=== PATIENT | male | born 1965 | race Caucasian/White ===

== ENCOUNTER 2020-11-29 09:39 | Day surgery (SDC) | payer BC, SELFPAY ==
[2020-11-25 15:28] VITALS: BMI 28.4
[2020-11-26 09:07] VITALS: BMI 28.4
--- NOTE | 2020-11-27 14:08 | P.CONAN_ITS ---
Documented by User: Noemy Morgan 11/27/20 14:08 HPI - Anesthesia Eval Consult details Narrative: 55yo M for Upper Endoscopy [facility] Past Medical History Medical History (Updated 11/25/20 @ 15:27 by Melina Sena) Hiatal hernia Surgical History Surgical History (Updated 11/25/20 @ 15:27 by Melina Sena) History of back surgery Hx of left knee surgery Social History Social History (Updated 11/25/20 @ 15:28 by Melina Sena) Smoking Status: Never smoker Advance Directives Information Provided: No Meds Allergies Allergy/AdvReac Type Severity Reaction Status Date / Time No Known Allergies Allergy Verified 11/25/20 15:28 Exam Exam Date and Time: November 27, 2020 1408 Height,Weight and Vital Signs: Height 5 ft 10 in Weight 89.811 kg Assessment and Plan Assessment Anesthesia Assessment: Chart Reviewed Documented by User: Amy Odonnell 11/29/20 11:06 [facility] Past Medical History Medical History (Updated 11/25/20 @ 15:27 by Melina Sena) Hiatal hernia Surgical History Surgical History (Updated 11/25/20 @ 15:27 by Melina Sena) History of back surgery Hx of left knee surgery Social History Social History (Updated 11/25/20 @ 15:28 by Melina Sena) Smoking Status: Never smoker Advance Directives Information Provided: No Meds Allergies Allergy/AdvReac Type Severity Reaction Status Date / Time No Known Allergies Allergy Verified 11/25/20 15:28 Exam Airway Mallampati Class: II TM Dist: >3cm Neck ROM: Full Heart: RrR Lungs: CTA BL Assessment and Plan Assessment Anesthesia Assessment: Anesthesia Plan Discussed and Chart Reviewed Final Anesthetic Review NPO: Yes ASA Class: I Final Preanesthetic Review: No Changes in Pt Med Stat and Consent Obtained/Reviewed Patient Risk: Intermediate Procedure Risk: Intermediate Anesthetic Plan Anesthetic Plan: MAC: Disposition: Standard PACU
[2020-11-29] MEDS: Lactated Ringers 1,000 ML 100 ML IVCONT (11:10)
[2020-11-29 11:11] VITALS: BP 125/80; PULSE 69; RESP 18; TEMP 36.1; O2SAT 96
--- NOTE | 2020-11-29 11:15 | MHC.SHP ---
Pre-Procedural Eval Section A The patient is an INPATIENT: No Changes since office visit: No Cold of Flu in the past 2 weeks, No New Medical Problems, No Changes in Medication and No Patient answered all questions The History & Physical has been completed within 30 days and I have reviewed it.: Yes Section B Chief Complaint: reflux disease,dysphagia Allergies: Allergies Allergy/AdvReac Type Severity Reaction Status Date / Time No Known Allergies Allergy Verified 11/25/20 15:28 Plan I have reviewed the history and physical and performed a pertinent physical examination on my patient. No changes have occurred unless specified.
--- NOTE | 2020-11-29 11:40 | PM.OP ---
Brief Operative Note Date of Service: 11/29/20 Pre-op diagnosis: gerd, dysphagia Post-op diagnosis: same (distal esophageal ring) Procedure: egd Surgeon: Arden Whitlock Anesthesia: MAC Estimated blood loss (mL): 10 Pathology: other (bxs egj and 30 cm) Condition: stable Disposition: PACU
[2020-11-29 11:44] VITALS: BP 128/81; PULSE 107; RESP 20; TEMP 36.6; O2SAT 88
[2020-11-29 11:59] VITALS: BP 124/85; PULSE 81; RESP 20; O2SAT 94
[2020-11-29 12:12] VITALS: BP 115/83; PULSE 79; RESP 18; TEMP 36.2; O2SAT 96
--- NOTE | 2020-11-29 21:09 | OP_ITS ---
SURGEON: Arden Whitlock MD INDICATIONS: Dysphagia and gastroesophageal reflux disease. PREOPERATIVE DIAGNOSIS: POSTOPERATIVE DIAGNOSIS: PROCEDURE PERFORMED: ESTIMATED BLOOD LOSS: COMPLICATIONS: ANESTHESIA: ASSISTANTS: SPECIMENS: PROCEDURES PERFORMED: Upper endoscopy with balloon dilation and biopsy. MEDICATIONS: Monitored anesthesia care. DESCRIPTION OF PROCEDURE: History and physical performed. The risks and benefits of the procedure were explained to the patient. Informed consent was obtained. The patient was placed in the left lateral decubitus position. The Olympus video gastroscope was introduced into the esophagus, stomach, and duodenum. Examination was performed. The scope was removed. He tolerated the procedure well and was taken to recovery area in stable condition. FINDINGS: Esophagus: There was a ring-like appearance of distal esophagus with a possible Schatzki ring at the EG junction. The scope initially did not pass through this, but then popped through with gentle pressure causing a small dilation of the EG junction. There was a sliding hiatal hernia. Stomach: Stomach showed no evidence of masses, ulcers, or polyps. Duodenum: The bulb and second portion were normal. A balloon dilation at the EG junction was performed with a 15-mm balloon with superficial mucosal disruption and excellent results. No further dilation was performed. Biopsies were obtained from the EG junction and at 30 cm to rule out eosinophilic esophagitis. IMPRESSION: Distal esophageal ring, hiatal hernia. RECOMMENDATIONS: 1. Follow up the biopsy results. 2. Consider repeat dilation pending clinical course. MD GRACIE Huang/SHIRLEY / [id number]
== END 2020-11-29 13:57 | disposition home or self-care (01) ==
PROVIDERS: PCP Internal Medicine; Visit Provider Internal Medicine Gastroenterology
PROC: 0DJ08ZZ Inspection of Upper Intestinal Tract, Via Natural or Artificial Opening Endoscopic (ICD-10-PCS; CPT 43235; principal; 2020-11-29 11:30)
DX: K21.9 Gastro-esophageal reflux disease without esophagitis (principal); K22.2 Esophageal obstruction; K44.9 Diaphragmatic hernia without obstruction or gangrene
CPT/HCPCS: 43249; 43239; 88305; 88312; C1726

== ENCOUNTER 2022-08-21 09:12 | Day surgery (SDC) | payer BC, SELFPAY ==
--- NOTE | 2022-08-20 11:58 | P.CONAN_ITS ---
Documented by User: Noemy Morgan NP 08/20/22 11:58 HPI - Anesthesia Eval Consult details Narrative: 57yo M for Colonoscopy s/p EGD 11/2020 with MAC [facility] Past Medical History Medical History GERD (gastroesophageal reflux disease) Hiatal hernia Surgical History Surgical History History of back surgery Hx of left knee surgery Social History Social History Patient Tobacco Use Status: Never used Tobacco Use of substances other than those prescribed or required for medical reasons: No Are you DNR?: No Advance Directives: No Advance Directives Information Provided: Yes Meds Allergies Allergy/AdvReac Type Severity Reaction Status Date / Time No Known Allergies Allergy Verified 08/21/22 09:18 Home Medications Medication Instructions Recorded Confirmed Last Taken Type omeprazole 20 mg capsule,delayed 20 cap PO QAM 08/20/22 Unknown History release Exam Exam Date and Time: August 20, 2022 1158 Assessment and Plan Assessment Anesthesia Assessment: Chart Reviewed Documented by User: Brigida Delcid MD 08/21/22 10:16 [facility] Past Medical History Medical History GERD (gastroesophageal reflux disease) Hiatal hernia Family History Family history of problems with anesthesia: No Surgical History Surgical History History of back surgery Hx of left knee surgery History of Problems with Anesthesia: No Social History Social History Patient Tobacco Use Status: Never used Tobacco Use of substances other than those prescribed or required for medical reasons: No Are you DNR?: No Advance Directives: No Advance Directives Information Provided: Yes Meds Allergies Allergy/AdvReac Type Severity Reaction Status Date / Time No Known Allergies Allergy Verified 08/21/22 09:18 Home Medications Medication Instructions Recorded Confirmed Last Taken Type omeprazole 20 mg capsule,delayed 20 cap PO QAM 08/20/22 Unknown History release Exam Height,Weight and Vital Signs: Height 5 ft 10 in Weight 83.915 kg Vital Signs Temp Pulse Resp BP Pulse Ox O2 Del Method 08/21/22 09:24 97.8 F 72 15 131/87 96 Room Air Airway Mallampati Class: II TM Dist: >3cm Neck ROM: Full Loose/Missing/Broken Teeth: No Heart: RRR Lungs: CTAB Assessment and Plan Assessment Anesthesia Assessment: Anesthesia Plan Discussed Final Anesthetic Review Family History of Problems with Anesthesia: No History of Problems with Anesthesia: No NPO: Yes ASA Class: II Final Preanesthetic Review: No Changes in Pt Med Stat, Meds/Allgs Chart Reviewed, Consent Obtained/Reviewed and Anes Risks/Benef Reviewed Patient Risk: Low Procedure Risk: Low Assessment/Block/Sedation in SS: Assess/Block/Sedation-SS Anesthetic Plan Anesthetic Plan: MAC: Disposition: Standard PACU
[2022-08-21 09:19] VITALS: BMI 26.5
[2022-08-21 09:24] VITALS: BP 131/87; PULSE 72; RESP 15; TEMP 36.6; O2SAT 96
[2022-08-21] MEDS: Lactated Ringers 1,000 ML 100 ML IVCONT (09:40)
--- NOTE | 2022-08-21 10:21 | MHC.SHP ---
Pre-Procedural Eval Section A Date of Service: 08/21/22 The patient is an INPATIENT: No Changes since office visit: No Cold of Flu in the past 2 weeks, No New Medical Problems, No Changes in Medication and No Patient answered all questions The History & Physical has been completed within 30 days and I have reviewed it.: Yes Section B Chief Complaint: screening Allergies: Allergies Allergy/AdvReac Type Severity Reaction Status Date / Time No Known Allergies Allergy Verified 08/21/22 09:18 Plan I have reviewed the history and physical and performed a pertinent physical examination on my patient. No changes have occurred unless specified.
[2022-08-21 10:42] VITALS: BP 88/58; PULSE 78; RESP 16; TEMP 36.7; O2SAT 94
--- NOTE | 2022-08-21 10:49 | PM.OP ---
Brief Operative Note Date of Service: 08/21/22 Pre-op diagnosis: screening Post-op diagnosis: same Procedure: colonscopy Surgeon: Arden Whitlock Anesthesia: MAC Was an Animal Care Service Worker used for this Procedure?: No Estimated blood loss (mL): 0 Pathology: none sent Condition: stable Disposition: PACU
[2022-08-21 10:57] VITALS: BP 95/60; PULSE 62; RESP 16; O2SAT 93
[2022-08-21 11:12] VITALS: BP 109/71; PULSE 71; RESP 16; TEMP 36.6; O2SAT 96
--- NOTE | 2022-08-21 11:30 | OP_ITS ---
SURGEON: Arden Whitlock MD INDICATIONS: Colon cancer screening. PREOPERATIVE DIAGNOSIS: POSTOPERATIVE DIAGNOSIS: PROCEDURE PERFORMED: Colonoscopy to the terminal ileum. ESTIMATED BLOOD LOSS: COMPLICATIONS: ANESTHESIA: Monitored anesthesia care. ASSISTANTS: SPECIMENS: DESCRIPTION OF PROCEDURE: The procedure date is 08/21/2022. History and physical performed. The risks and benefits of the procedure were explained to the patient. Informed consent was obtained. The patient was placed in the left lateral decubitus position. A digital rectal exam was performed and was found to be normal. The Olympus pediatric video colonoscope was introduced into the rectum and advanced to the cecum without difficulty. The cecum was identified by transillumination, palpation, and identification of ileocecal valve. Examination was performed. The scope was removed. He tolerated the procedure well and was returned to recovery in stable condition. FINDINGS: The terminal ileum was examined and appeared normal. The visualized colonic mucosa was within normal limits without evidence of masses or ulcers. No polyps were identified. There was mild sigmoid diverticulosis. The quality of the prep was good. Retroflexed examination documented small internal hemorrhoids. IMPRESSION: Normal colonoscopy. RECOMMENDATION: 1. Follow up as needed. 2. Repeat colonoscopy is recommended in 10 years for average risk individuals. MD GRACIE Huang/SHIRLEY / [id number]
== END 2022-08-21 11:30 | disposition home or self-care (01) ==
PROVIDERS: PCP Internal Medicine; Visit Provider Internal Medicine Gastroenterology
PROC: 0DJD8ZZ Inspection of Lower Intestinal Tract, Via Natural or Artificial Opening Endoscopic (ICD-10-PCS; CPT 45378; principal; 2022-08-21 10:20)
DX: Z12.11 Encounter for screening for malignant neoplasm of colon (principal); K57.30 Diverticulosis of large intestine without perforation or abscess without bleeding; K64.8 Other hemorrhoids; K20.0 Eosinophilic esophagitis; K21.9 Gastro-esophageal reflux disease without esophagitis; K44.9 Diaphragmatic hernia without obstruction or gangrene; Z79.899 Other long term (current) drug therapy
CPT/HCPCS: 45378